=== PATIENT | male | born 2000 | race Caucasian/White ===

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

== ENCOUNTER 2022-04-17 18:23 | Emergency (ER) | payer OTHER ==
[2022-04-17] MEDS ORDERED: Ibuprofen 800 MG TAB ONE (18:40)
[2022-04-17] MEDS ORDERED: Acetaminophen 500 MG TAB ONE (18:40)
== END 2022-04-17 19:48 | disposition home or self-care (01) ==
LOC: BURERS 18:23
DX: S42.102A Fracture of unspecified part of scapula, left shoulder, initial encounter for closed fracture (principal); F17.290 Nicotine dependence, other tobacco product, uncomplicated; V80.010A Animal-rider injured by fall from or being thrown from horse in noncollision accident, initial encounter

== ENCOUNTER 2022-10-01 13:30 | Emergency (ER) | payer OTHER ==
[2022-10-01] MEDS ORDERED: Ibuprofen 200 MG TAB ONE (14:42)
== END 2022-10-01 15:33 | disposition home or self-care (01) ==
LOC: BURERS 13:30
DX: J10.1 Influenza due to other identified influenza virus with other respiratory manifestations (principal); F17.290 Nicotine dependence, other tobacco product, uncomplicated
CPT/HCPCS: 87804; 99283

== ENCOUNTER 2022-11-29 08:04 | Emergency (ER) | payer OTHER | END 2022-11-29 09:17 | disposition home or self-care (01) | LOC: BURERS 08:04 | DX: J06.9 Acute upper respiratory infection, unspecified (principal) | CPT/HCPCS: 87081; 87430; 87804; 99284 ==

== ENCOUNTER 2022-11-30 22:21 | Emergency (ER) | payer OTHER ==
[2022-11-30] MEDS ORDERED: Acetaminophen 325 MG TAB ONE (22:37)
[2022-11-30 23:23] LABS: Bilirubin Negative (Negative); Blood, Urine Negative (Negative); Clarity Clear (Clear); Glucose, Urine (Dipstick) Negative (Negative); Ketone, Urine Trace mg/dL (Negative); Leukocyte Negative (Negative); Nitrite Negative (Negative); Protein, Urine (Dipstick) 30 mg/dL (Neg-Trace)
[2022-11-30 23:26] LABS: #Lymphocytes 0.7 thou/uL (1.20-3.40); #Monocytes 1.1 thou/uL (0.11-0.59); #Neutrophils 6.9 thou/uL (1.40-6.50); %Basophils 0.6 % (0.0-1.0); %Eosinophils 0.2 % (0.0-10.0); %Lymphocytes 8.3 % (28.0-48.0); %Monocytes 12.6 % (0.0-4.0); %Neutrophils 78.3 % (31.0-61.0); Hemoglobin 14.4 g/dL (14.0-18.0); Mean Corpuscular HGB CONC 34.4 g/dL (32.0-36.0); Mean Corpuscular Hemoglobin 28.3 pg (25.0-35.0); Mean Corpuscular Volume 82.1 fl (78.0-98.0); Mean Platelet Volume 10.1 fL (7.4-10.4); Platelet Count 179 10x3/uL (130-400); RBC Distribution Width 11.9 % (11.5-14.5); Red Blood Cell (RBC) Count 5.08 mill/uL (4.00-5.20); White Blood Cell (WBC) Count 8.8 10x3/uL (4.8-10.8)
[2022-11-30 23:27] LABS: Mucous/LPF 1+ LPF (<2+); RBC/HPF None Seen HPF (0-3); Squamous Epithelial None Seen HPF (0-3); WBC/HPF None Seen HPF (0-3)
[2022-11-30 23:28] LABS: Bacteria/HPF None Seen HPF (None Seen)
[2022-11-30 23:36] LABS: Amphetamine Not Detected (NotDetected); Barbiturates Screen Not Detected (NotDetected); Benzodiazepine Screen Not Detected (NotDetected); Cocaine Metabolite Screen Not Detected (NotDetected); Medtox Control Line Valid? VALID (VALID); Methadone Not Detected (NotDetected); Methamphetamine Not Detected (NotDetected); Opiate Screen Not Detected (NotDetected); Oxycodone Screen Not Detected (NotDetected); Phencyclidine (PCP) Not Detected (NotDetected); THC/Cannabinoid Screen Not Detected (NotDetected); Tricyclic Screen Not Detected (NotDetected)
[2022-11-30 23:40] LABS: ALT (SGPT) 24 U/L (8-55); AST (SGOT) 22 U/L (10-45); Albumin 4.4 g/dL (3.5-5.0); Alkaline Phosphatase 80 U/L (50-130); Anion Gap 14 mmol/L (10-20); BUN (Urea Nitrogen) 9 mg/dL (8.4-21.0); Bilirubin, Total 0.7 mg/dL (0.2-1.2); Calc. Creatinine Clearance 0 mL/min (70-130); Calcium 9.2 mg/dL (7.8-10.44); Carbon Dioxide 24 mmol/L (22-29); Chloride 100 mmol/L (98-107); Estimated GFR 94; Globulin 3.2 g/dL (2.4-3.5); Glucose 118 mg/dL (70-105); Lipase 6 U/L (8-78); Magnesium 1.7 mg/dL (1.7-2.2); Potassium 3.9 mmol/L (3.5-5.1); Protein, Total 7.6 g/dL (6.0-8.3); Sodium 134 mmol/L (136-145)
[2022-11-30] MEDS ORDERED: Ketorolac Tromethamine 30 MG/ML VIAL ONE (23:56)
[2022-11-30] MEDS ORDERED: Ciprofloxacin 500 MG TAB ONE (23:56)
[2022-12-01 00:40] LABS: MONO NEGATIVE CONTROL ZONE White (Negative) (White); MONO POSITIVE CONTROL Pink Line (Positive) (PINK/RED); Mononucleosis NEGATIVE (NEGATIVE)
== END 2022-12-01 00:59 | disposition home or self-care (01) ==
LOC: BURERS 22:21
DX: K52.9 Noninfective gastroenteritis and colitis, unspecified (principal); F17.200 Nicotine dependence, unspecified, uncomplicated; Z20.822 Contact with and (suspected) exposure to COVID-19
CPT/HCPCS: 71045; 80053; 80306; 81003; 81015; 83605; 83690; 83735; 85025; 86308; 96361; 96374; J1885; U0003; U0005